=== PATIENT | female | born 1940 | race Caucasian/White ===

== ENCOUNTER → 2016-09-09 | Outpatient (CLI) | payer MEDICARE, BC | LOC: HEART 5 13:28 | DX: I87.2 Venous insufficiency (chronic) (peripheral) (principal) ==

== ENCOUNTER → 2020-07-22 | Outpatient (CLI) | payer MEDICARE, BC, OTHER ==
[~2020-07-22] MED LIST: BIOTIN5 MG PO; CELEBREX 200MG200 MG PO; CINNAMON500 MG PO; CLARITIN10 MG PO; ECOTRIN81 MG PO; ELIQUIS 2.5 MG2.5 MG PO; FLONASE 0.05% N16 GM; IBUPROFEN600 MG PO; LIORESAL TAB 1010 MG PO; MONOPRIL TAB 1010 MG PO; NORCO 10-325 T1 EACH PO; VALTREX 500 MG500 MG PO; VITAMIN D31000 UNI1 PO; [UNRECOGNIZED DRUG - OTHER] PO
== END ==
LOC: CT 08:30
DX: M54.12 Radiculopathy, cervical region (principal); M50.31 Other cervical disc degeneration, high cervical region; M48.02 Spinal stenosis, cervical region; M48.03 Spinal stenosis, cervicothoracic region; M85.88 Other specified disorders of bone density and structure, other site
CPT/HCPCS: 72125; 77080